=== PATIENT | female | born 1955 | race Caucasian/White ===

== ENCOUNTER → 2023-07-14 | Outpatient (CLI) | payer MEDICARE | END | disposition home or self-care (01) | LOC: RESCLI 10:01 | PROVIDERS: ATTEND Internal Medicine | DX: I48.91 Unspecified atrial fibrillation (principal); I10 Essential (primary) hypertension; E11.9 Type 2 diabetes mellitus without complications; N30.90 Cystitis, unspecified without hematuria; E05.00 Thyrotoxicosis with diffuse goiter without thyrotoxic crisis or storm; E78.2 Mixed hyperlipidemia; E55.9 Vitamin D deficiency, unspecified; F41.9 Anxiety disorder, unspecified; Z98.890 Other specified postprocedural states; Z88.8 Allergy status to other drugs, medicaments and biological substances; Z79.899 Other long term (current) drug therapy ==